=== PATIENT | male | born 1970 | race Caucasian/White ===

== ENCOUNTER 2019-06-28 07:09 | Emergency (ER) | payer MEDICAID, OTHER ==
[~2019-06-28] VITALS: Ht 172.7 cm; Wt 116.8 kg
[~2019-06-28 07:09] MED LIST: CLIN300C10 PO; NAPR-985 PO; PRED20TA PO
[2019-06-28 07:10] VITALS: Ht 172.7 cm; Wt 116.8 kg
[2019-06-28] MEDS ORDERED: SOD CHLORIDE 0.9% 1,000 ML IV STA (07:34)
[2019-06-28] MEDS ORDERED: BARIUM SULFATE 135 ML (E-Z HD) PO ONE (07:43)
[2019-06-28] MEDS ORDERED: IOHEXOL 300MG/ML 150 ML BTL ONE (07:59)
[2019-06-28] MEDS ORDERED: SOD CHLORIDE 0.9% 100 ML ONE (07:59)
[2019-06-28 11:29] VITALS: BP 161/79; PULSE 57; RESP 18
== END 2019-06-28 11:30 | disposition home or self-care (01) ==
LOC: FTE 07:09
DX: R13.10 Dysphagia, unspecified (principal); I10 Essential (primary) hypertension
CPT/HCPCS: 36415; 70491; 74230; 80053; 81003; 83690; 85025; 96360; J7030; Q9967; Z7502; Z7610